=== PATIENT | male | born 1980 | race African-American/Black ===

== ENCOUNTER 2023-12-01 11:22 | Emergency (ER) | payer OTHER, SELFPAY ==
[2023-12-01 11:24] VITALS: BP 128/92; PULSE 96; RESP 14; TEMP 36.8; O2SAT 98
--- NOTE | 2023-12-01 11:49 | CT_ITS ---
STUDY: CT ABDOMEN AND PELVIS WITH CONTRAST REASON FOR EXAM: Male, 43 years old. Lower abd pain, anorectal pain RADIATION DOSAGE (If Supplied By Facility): CTDIvol = ( 12.98 ) mGy, DLP = ( 740.80 ) mGycm TECHNIQUE: IV 100mL Isovue-300 was administered. Transaxial images were obtained from the dome of the diaphragm to the symphysis pubis. Multiplanar coronal and sagittal images were reformatted. The protocol utilizes one or more of the following dose reduction techniques: automated exposure control, adjustment of mA and/or kV according to patient size,and/or use of iterative reconstruction technique. COMPARISON: No relevant prior comparison study available FINDINGS: The visualized lung bases are unremarkable. The visualized portions of the heart are within normal limits. Normal liver. Normal gallbladder and extrahepatic biliary system. Normal spleen. Normal pancreas. Normal bilateral adrenal glands. Small 6 mm simple cyst in the left kidney for which no further follow-up exam is needed. No evidence of hydronephrosis. Normal visualized stomach. Slightly prominent proximal jejunal loops. No evidence of small bowel obstruction. Focal thickening of the distal rectum probably due to underdistention difficult to accurately evaluate on this exam. No evidence of acute diverticulitis. The appendix is visualized and appears normal. Normal abdominal aorta. No retroperitoneal adenopathy. Normal urinary bladder. Mild laxity of the lower aspect of the rectus muscles with mild bulging of the bladder. There is a small umbilical hernia containing fat. Disc protrusion at the level of L4-L5 extending to the left side with narrowing of the left neural foramina. CT/Abdomen/Pelvis W IV Cont ONLY IMPRESSION: 1. No focal acute inflammatory process. 2. Mild thickening of the distal rectum could be due to underdistention difficult to accurately evaluate on this exam. 3. Disc protrusion at the level of L4-L5. Electronically Signed: Chava Orellana MD at 13:05 EDT ,
--- NOTE | 2023-12-01 11:50 | ED.VIS.GI ---
HPI HPI - GI History of Present Illness Chief Complaint: Constipation Informant: patient and family (mult) Limited: language barrier (romanian-speaking; family requests that fam member via telephone perform translating) Abdominal Pain/Flank Pain Onset: Days (2) Narrative Narrative: 43-year-old Samoan-speaking male healthy states he has been constipated for the past 2 days, and having lower abdominal pain that started afterwards. No nausea or vomiting. He did a laxative this morning, and states half hour ago he had a loose nonbloody bowel movement but it did not help his pain at all. The majority of his pain is anorectal but also more mild in his lower abdomen nonlateralizing. No history of any abdominal surgeries in the past. PFSH PFSH Medical History no medical history no medical history Allergy/AdvReac Type Severity Reaction Status Date / Time No Known Allergies Allergy Verified 12/01/23 11:24 Surgical History no surgical history Social History Smoking Status: Never smoker ROS ROS ED Constitutional Constitutional ED: Denies chills or fever(s) Eyes Eyes: Denies change in vision or diplopia ENT ENT ED: Denies rhinorrhea or sore throat Cardiovascular Cardiovascular: Denies chest pain or palpitations Respiratory/Chest Respiratory/Chest: Denies cough or dyspnea Gastrointestinal Gastrointestinal: Reports abdominal pain, constipation and diarrhea; Denies hematochezia, melena, nausea or vomiting Genitourinary Genitourinary ED: Denies dysuria or hematuria Musculoskeletal Musculoskeletal: Denies back pain or neck pain Integumentary Denies abscess or rash Neurologic Neurologic: Denies headache(s), paresthesias or weakness Psychiatric Psychiatric: Denies suicidal thoughts EXAM Physical Exam Const Vital Signs: 12/01/23 11:24 12/01/23 13:24 Temperature 98.3 F Temperature Source Temporal Pulse Rate 96 87 Respiratory Rate 14 16 Blood Pressure 128/92 H 126/88 H Blood Pressure Mean 104 100 Pulse Ox 98 98 Oxygen Delivery Method Room Air Room Air Positive well nourished and well developed General Appearance ED: well developed and NAD HEENT Reports moist mucous membranes normocephalic and atraumatic Eyes PERRL and EOMs intact bilaterally Neck full ROM and supple Resp normal respiratory effort and clear to auscultation bilaterally Cardio regular rate, regular rhythm and no murmurs GI non-distended GI Narrative: Mild lower abdominal tenderness without guarding or rebound. On rectal exam, there is mild diffuse tenderness but no palpable fullness or other abnormality externally. No hemorrhoids seen. Attempting to do digital rectal exam, patient is screaming in horrific pain, withdrawing, very limited exam, I was not able to perform SHARONDA. Auscultation: normoactive bowel sounds Palpation: soft Back/Spine no CVA tenderness General Back: other FROM Extremity normal to inspection General Extremety ED: Negative for edema, pulses abnormal or tenderness General Extremity: Negative for edema or pulses abnormal Neuro oriented x3, CN's II-XII intact bilaterally and no sensory deficits noted Sensorium / Orientation: awake and alert Motor Exam: strength 5/5 throughout Skin no rashes or lesions noted and no wounds MDM MDM MDM Narrative Medical decision making narrative: Given history and exam, this may be something other than just constipation. Pain on rectal exam is out of proportion to what I would expect for someone who is just constipated/obstipated. For this reason, obtaining IV contrasted CT of the abdomen/pelvis, appropriate labs, and providing the patient with pain control and prophylaxis against nausea. He felt much better after these medications. I reviewed the labs which are unremarkable as well as the CT images and report which I agree with, it shows nothing focal to explain the patient's pain but in the distal rectum there is wall thickening that is nonspecific. I did spoke with Dr. Cordero, she agrees it is possible that simply the colon is decompressed and this could explain the thickening and there is no acute abnormality or process, but she recommends performing a oral contrasted repeat CT with delayed images in order to evaluate the area further to rule out an early rectal abscess. This is being performed, and I discussed this thoroughly through official employee benefits manager service once we discover the patient does not speak Samoan as the family initially indicated, he speaks [place] Creole, gave the patient the ability to ask any questions and he was comfortable with the time delay in order to repeat this test. Checked out results and final disposition to oncoming ED physician at shift change. If negative, I would support discharge with prescription for dicyclomine to use as needed and also prn magnesium citrate. Lab Data Attestation: I reviewed the patient's lab results. Labs: Laboratory Results - last 24 hr 12/01/23 12:00 WBC 6.6 RBC 5.04 Hgb 15.3 Hct 45.4 MCV 90.1 MCH 30.4 MCHC 33.7 RDW Std Deviation 37.4 RDW Coeff of Noel 11.3 L Plt Count 260 MPV 10.1 Immature Gran % (Auto) 0.900 Neut % (Auto) 55.6 Lymph % (Auto) 29.5 [place] % (Auto) 12.5 H Eos % (Auto) 0.9 Baso % (Auto) 0.6 Absolute Neuts (auto) 3.7 Absolute Lymphs (auto) 1.94 Nucleated RBC % 0 Sodium 137 Potassium 4.2 Chloride 105 Carbon Dioxide 27.0 Anion Gap 5 BUN 6 L Creatinine 0.88 Est GFR (MDRD) Af Amer 122 Est GFR (MDRD) Non-Af 101 BUN/Creatinine Ratio 6.8 L Glucose 116 H Calcium 9.2 Total Bilirubin 0.80 AST 18 ALT 34 Alkaline Phosphatase 76 Total Protein 7.8 Albumin 3.9 Globulin 3.9 Albumin/Globulin Ratio 1.0 Radiography Diagnostic Testing: Clinical Impression(s) from Imaging Studies Abdomen/Pelvis CT 12/01/23 11:49 IMPRESSION: 1. No focal acute inflammatory process. 2. Mild thickening of the distal rectum could be due to underdistention difficult to accurately evaluate on this exam. 3. Disc protrusion at the level of L4-L5. Electronically Signed: Chava Orellana MD at 13:05 EDT , Discharge Plan Triage Chief Complaint: Constipation ED Provider: Mitchell Watson Dx/Rx/DC Orders Clinical Impression: Acute bilateral lower abdominal pain, Anal or rectal pain Primary Care Provider: Care Physician,No Primary Referrals: Jenna Henry [Non-Staff] - As Needed Care Physician,No Primary [Primary Care Provider] - Print Language: Samoan
[2023-12-01] MEDS: Ondansetron 4 MG/2 ML Vial IV (12:06)
[2023-12-01] MEDS: Morphine 4 MG/ML Syringe IV (12:06)
[2023-12-01 12:07] LABS: Absolute Lymphocyte Count 1.94 X10^3/uL (0.83-4.51); Absolute Neutrophil Count 3.7 X10^3/uL (2.0-7.7); Basophil# 0.04 X10^3/uL; Basophil% 0.6 % (0-1); Eosinophil# 0.06 X10^3/uL; Eosinophils% 0.9 % (0-5); Hematocrit 45.4 % (40-54); Hemoglobin 15.3 g/dL (13.0-16.5); Lymphocyte # 1.94 X10^3/ul (0.83-4.51); Lymphocyte % 29.5 % (19-41); Mean Corp Hgb Conc 33.7 g/dL (32-36); Mean Corpuscular Hgb 30.4 pg (27.0-32.0); Mean Corpuscular Volume 90.1 fL (80-94); Mean Platelet Vol. 10.1 fl (6.2-12.0); Monocyte# 0.82 X10^3/uL; Monocyte% 12.5 % (0-10); NRBC Flagged by Analyzer 0 % (0-5); Neutrophil # 3.66 X10^3/uL (2.7-7.7); Neutrophil % 55.6 % (47-70); Platelet Count 260 K/mm3 (150-450); RBC Distribution Width CV 11.3 % (11.6-14.6); RBC Distribution Width SD 37.4 fl (35.1-43.9); Red Blood Count 5.04 M/mm3 (4.6-6.2); White Blood Count 6.6 K/mm3 (4.4-11.0)
[2023-12-01] MEDS: 0.9% Normal Saline (1000mL) 1,000 ML 125 ML IV (12:07)
--- NOTE | 2023-12-01 12:10 | ED.RN ---
pt speaks pakistani creole. inturpretor through ipad utilitzed
[2023-12-01 12:26] LABS: AST(SGOT) 18 U/L (15-37); Alanine Aminotransfer ALT/SGPT 34 U/L (16-61); Albumin, Serum 3.9 g/dL (3.2-5.0); Alkaline Phosphatase 76 U/L (45-117); Anion Gap 5 (5-15); BUN 6 mg/dL (7-18); BUN/Creat Ratio 6.8 RATIO (10-20); Calcium,Total 9.2 mg/dL (8.5-10.1); Chloride 105 mmol/L (98-107); Creatinine, Serum 0.88 mg/dL (0.70-1.30); EST Glomerular Filtration Rate 101 mL/min (>60); Est Glom Filt Rate - Afr Amer 122 mL/min (>60); Globulin 3.9 g/dL (2.2-4.2); Glucose 116 mg/dL (74-106); Potassium 4.2 mmol/L (3.5-5.1); Protein, Total 7.8 g/dL (6.4-8.2); Sodium Level 137 mmol/L (136-145)
[2023-12-01 13:24] VITALS: BP 126/88; PULSE 87; RESP 16; O2SAT 98
--- NOTE | 2023-12-01 14:13 | CT_ITS ---
STUDY: CT PELVIS WITHOUT CONTRAST REASON FOR EXAM: Male, 43 years old. rectal pain -- po contrast RADIATION DOSAGE (If Supplied By Facility): CTDIvol = ( 28.21 ) mGy, DLP = ( 1116.76 ) mGycm TECHNIQUE: Transaxial imaging of the pelvis was performed with oral contrast, and without intravenous administration of contrast material. Individualized dose optimization techniques were used for this CT. COMPARISON: None. FINDINGS: Normal urinary bladder. Normal visualized small intestine. Normal visualized colon. There is no pelvic fluid. There is no pelvic mass lesion or lymphadenopathy. Normal visualized pelvic arteries. Normal abdominal wall. Normal osseous structures. CT/Pelvis without IV Contrast IMPRESSION: Normal unenhanced CT of the pelvis. Electronically Signed: Alan Escamilla MD at 18:06 EDT ,
[2023-12-01 15:50] VITALS: BP 108/68; PULSE 65; RESP 15; TEMP 36.6; O2SAT 98
[2023-12-01 18:53] VITALS: BP 133/68; PULSE 68; RESP 18; TEMP 37.2; O2SAT 97
== END 2023-12-01 19:09 | disposition home or self-care (01) ==
PROVIDERS: Emergency Provider Emergency Medicine; Visit Provider Emergency Medicine
DX: R10.9 Unspecified abdominal pain (principal); K62.89 Other specified diseases of anus and rectum
CPT/HCPCS: 72192; 74177; 80053; 85025; 96361; 96374; 99284; J7030; Q9967; A4216; J2405